=== PATIENT | male | born 1990 | race Caucasian/White ===

== ENCOUNTER 2019-05-24 12:06 | Inpatient (IN) | payer OTHER ==
[2019-05-24 17:23] VITALS: BMI 22.9
--- NOTE | 2019-05-24 17:51 | HP ---
COWS - Scale Resting Pulse: 0= [place] 80 or Below Sweatin= Chills/Flushing Restless Observation: 1= Difficult to Sit Still Pupil Size: 0= Normal to Room Light Bone or Joint Aches: 2= Severe Diffuse Aches Runny Nose/ Eye Tearin= Runny Nose/Eyes GI Upset > 30mins: 2= Nausea/Diarrhea Tremor Observation: 2= Slight Tremor Visible Yawning Observation: 1= 1-2x During Session Anxiety or Irritability: 2=Irritable/Anxious Goose Flesh Skin: 3=Piloerection COWS Score: 16 CIWA Score Nausea/Vomitin Muscle Tremors: 2 Anxiety: 2 Agitation: 2 Paroxysmal Sweats: 1-Minimal Palms Moist Orientation: 1-Uncertain about Date Tacttile Disturbances: 2-Mild Itch/Numbness/Burn Auditory Disturbances: 1-Very Mild Visual Disturbances: 1-Very Mild Sensitivity Headache: 1-Very Mild CIWA-Ar Total Score: 15 - Admission Criteria OASAS Guidelines: Admission for Medically Managed Detox: Requires at least one of the followin. CIWA greater than 12 2. Seizures within the past 24 hours 3. Delirium tremens within the past 24 hours 4. Hallucinations within the past 24 hours 5. Acute intervention needed for co occurring medical disorder 6. Acute intervention needed for co occurring psychiatric disorder 7. Severe withdrawal that cannot be handled at a lower level of care (continued vomiting, continued diarrhea, abnormal vital signs) requiring intravenous medication and/or fluids 8. Admission [facility] Chief Complaint: Withdrawal symptoms Allergies/Adverse Reactions: Allergies Allergy/AdvReac Type Severity Reaction Status Date / Time No Known Allergies Allergy Verified 05/24/19 17:02 History of Present Illness: 28 y.o. 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 He reports he last completed detox at [facility] "many years ago". Reports longest period of illicit drug abstinence has been 2 years while incarcerated. Exam Limitations: No Limitations - Ebola screening Have you traveled outside of the country in the last 21 days: No (N) Have you had contact with anyone from an Ebola affected area: No Do you have a fever: No - Review of Systems Constitutional: Chills, Diaphoresis, Loss of Appetite, Unexplained wgt Loss EENT: reports: Tearing, Nose Congestion Respiratory: reports: No Symptoms reported Cardiac: reports: No Symptoms Reported GI: reports: Diarrhea, Nausea, Vomiting, Abdominal cramping : reports: No Symptoms Reported Musculoskeletal: reports: Back Pain, Muscle Pain Integumentary: reports: No Symptoms Reported Neuro: reports: See HPI, Headache, Seizure (Last seizure 5 years d/t benzo withrdrawal) Endocrine: reports: No Symptoms Reported Hematology: reports: No Symptoms Reported Psychiatric: reports: Anxious, Depressed Other Systems: Reviewed and Negative Patient History - Patient Medical History Hx Anemia: No Hx Asthma: No Hx Chronic Obstructive Pulmonary Disease (COPD): No Hx Cancer: No Hx Cardiac Disorders: No Hx Congestive Heart Failure: No Hx Hypertension: No Hx Hypercholesterolemia: No Hx Pacemaker: No HX Cerebrovascular Accident: No Hx Seizures: Yes (5 years ago d/t benzo withdrawal ) Hx Dementia: No Hx Diabetes: No Hx Gastrointestinal Disorders: Yes (GERD ) Hx Liver Disease: No Hx Genitourinary Disorders: No Hx Sexually Transmitted Disorders: No Hx Renal Disease (ESRD): No Hx Thyroid Disease: No Hx Human Immunodeficiency Virus (HIV): No Hx Hepatitis C: No Hx Depression: Yes (NOT IN [place]) Hx Suicide Attempt: No (DENIES) Hx Bipolar Disorder: Yes Hx Schizophrenia: No - Patient Surgical History Past Surgical History: No Hx Neurologic Surgery: No Hx Cataract Extraction: No Hx Cardiac Surgery: No Hx Lung Surgery: No Hx Breast Surgery: No Hx Breast Biopsy: No Hx Abdominal Surgery: No Hx Appendectomy: No Hx Cholecystectomy: No Hx Genitourinary Surgery: No Hx Section: No Hx Orthopedic Surgery: No Anesthesia Reaction: No - PPD History Previous Implant?: Yes Documented Results: Negative w/proof Date: 07/26/14 PPD to be Administered?: Yes - Reproductive History Patient is a Female of Child Bearing Age (11 -55 yrs old): No - Smoking Cessation Smoking history: Current every day smoker Have you smoked in the past 12 months: Yes Aproximately how many cigarettes per day: 20 Hx Chewing Tobacco Use: No Initiated information on smoking cessation: Yes 'Breaking Loose' booklet given: 05/24/19 - Substance & Tx. History Hx Alcohol Use: No Hx Substance Use: Yes Substance Use Type: Heroin, Tranquilizers Hx Substance Use Treatment: Yes (Detox at [facility] in 2013) - Substances abused Heroin Substance route: Inhalation Frequency: Daily Amount used: 200 dolllars Age of first use: 26 Date of last use: 05/23/19 Alprazolam (Xanax) Substance route: Oral Frequency: Daily Amount used: 2 mg Age of first use: 22 Date of last use: 05/24/19 Admission Physical Exam [facility] - Vital Signs Vital Signs: Vital Signs - 24 hr 05/24/19 17:02 Temperature 98.6 F Pulse Rate 69 Respiratory 18 Rate Blood Pressure 135/79 - Physical General Appearance: Yes: Tremorous, Irritable, Sweating, Anxious HEENTM: Yes: Hearing grossly Normal, Normocephalic, Normal Voice, Nasal Congestion Respiratory: Yes: Lungs Clear, Normal Breath Sounds, No Respiratory Distress, No Accessory Muscle Use Neck: Yes: Within Normal Limits, No masses,lesions,Nodules Breast: Yes: Breast Exam Deferred Cardiology: Yes: Regular Rhythm, Regular Rate Abdominal: Yes: Increased Bowel Sounds Genitourinary: Yes: Other (No complaints reported) Back: Yes: Normal Inspection Musculoskeletal: Yes: Back pain Extremities: Yes: Normal Inspection, Normal Range of Motion, Non-Tender Neurological: Yes: Alert, Normal Mood/Affect, Normal Response Integumentary: Yes: Normal Color, Dry, Warm, Track Vang Lymphatic: Yes: Within Normal Limits - Diagnostic (1) Uncomplicated opioid dependence Current Visit: Yes Status: Chronic (2) Benzodiazepine dependence Current Visit: Yes Status: Chronic (3) GERD (gastroesophageal reflux disease) Current Visit: Yes Status: Chronic (4) Nicotine dependence Current Visit: Yes Status: Chronic (5) Seizures Current Visit: Yes Status: Chronic Cleared for Admission [facility] - Detox or Rehab [facility] Level of Care: Medically Managed Detox Regimen/Protocol: Methadone/Valium Breathalyzer - Breathalyzer Breathalyzer: 0 Urine Drug Screen - Test Device Lot number: [id number] Expiration date: 01/28/21 - Control Is test valid?: Yes - Results Drug screen NEGATIVE: No Urine drug screen results: THC-Marijuana, FEN-Fentanyl, MOP-Opiates, BZO- Benzodiazepines Inpatient Rehab Admission - Rehab Decision to Admit Inpatient rehab admission?: No
[2019-05-24] MEDS ORDERED: hydrOXYzine PAMOATE 25 MG CAPSULE (FP) PO PRN (17:53)
[2019-05-24] MEDS ORDERED: diazePAM 5 MG TABLET PO PRN (17:53)
[2019-05-24] MEDS ORDERED: BISMUTH SUBSALICYLATE 524 MG/30 ML UD PO PRN (17:53)
[2019-05-24] MEDS ORDERED: ACETAMINOPHEN 325 MG TABLET (FP) PO PRN ×2 (17:53)
[2019-05-24] MEDS ORDERED: MAGNESIUM HYDROX 2400MG/30ML ORAL SUSPENSION 30 ML CUP PO PRN (17:53)
[2019-05-24] MEDS ORDERED: MELATONIN 5 MG TABLETS PO PRN (17:53)
[2019-05-24] MEDS ORDERED: METHOCARBAMOL 500 MG TABLET PO PRN (17:53)
[2019-05-24] MEDS ORDERED: cloNIDine HCL 0.1 MG TABLET PO PRN (17:53)
[2019-05-24] MEDS ORDERED: IBUPROFEN 400 MG TABLET (FP) PO PRN (17:53)
[2019-05-24] MEDS ORDERED: MAGNESIUM CITRATE 300 ML BOTTLE PO PRN (17:53)
[2019-05-24] MEDS ORDERED: MENTHOL/PHENOL 1 EACH UD MM PRN (17:53)
[2019-05-24] MEDS ORDERED: MAG HYDROX/AL HYDROX/SIMETH 30 ML UNIT-DOSE CUP PO PRN (17:53)
[2019-05-24] MEDS ORDERED: NICOTINE POLACRILEX 2 MG GUM BUC PRN (17:53)
[2019-05-24] MEDS ORDERED: RANITIDINE HCL 150 MG TABLET (FP) PO ONE (18:15)
[2019-05-24] MEDS ORDERED: diazePAM 5 MG TABLET PO ONE (18:15)
[2019-05-24] MEDS ORDERED: METHADONE HCL 10 MG TABLET (FOR DETOX USE ONLY) PO ONE (18:15)
[2019-05-24] MEDS: RANITIDINE HCL 150 MG TABLET (FP) PO SCH ×2 (18:49→21:19)
[2019-05-24] MEDS: diazePAM 5 MG TABLET PO SCH (21:18)
[2019-05-24] MEDS: ONDANSETRON 4 MG TABLET PO SCH (21:19)
[2019-05-24] MEDS: HYOSCYAMINE SULFATE 0.125 MG *ODT SL SCH (21:19)
[2019-05-24] MEDS: SUCRALFATE 1 GM TABLET (FP) PO SCH (21:20)
[2019-05-24] MEDS ORDERED: THIAMINE HCL 100 MG TABLET (FP) PO SCH ×2 (22:00)
[2019-05-25] MEDS: diazePAM 5 MG TABLET PO SCH (05:31)
[2019-05-25] MEDS: SUCRALFATE 1 GM TABLET (FP) PO SCH (05:32)
[2019-05-25] MEDS: HYOSCYAMINE SULFATE 0.125 MG *ODT SL SCH (05:32)
[2019-05-25] MEDS: ONDANSETRON 4 MG TABLET PO SCH (05:32)
[2019-05-25] MEDS ORDERED: METHADONE HCL 10 MG TABLET (FOR DETOX USE ONLY) ONE (09:37)
[2019-05-25] MEDS ORDERED: METHADONE HCL 5 MG TABLET (FOR DETOX USE ONLY) ONE (09:38)
[2019-05-25 09:52] VITALS: TEMP 97.9
--- NOTE | 2019-05-25 09:55 | CONSULT ---
[facility] Psychiatric Consult - Data Date of interview: 05/25/19 Psychiatric History: Patient approached at bedside. Told pattern chart writer:"I don't want to see psychiatrist"
[2019-05-25] MEDS ORDERED: METHADONE (DETOX) 20 MG, METHADONE (DETOX) 5 MG PO ONE (10:00)
[2019-05-25] MEDS ORDERED: NICOTINE 21 MG/24 HOURS TOPICAL PATCH TD SCH (10:00)
[2019-05-25] MEDS ORDERED: PRENATAL VITAMINS W/ FOLIC ACID TABLET (FP) PO SCH (10:00)
[2019-05-25] MEDS: RANITIDINE HCL 150 MG TABLET (FP) PO SCH (10:07)
[2019-05-25 11:20] LABS: HEMATOCRIT 42.6 % (35.4-49); HEMOGLOBIN 14.5 GM/dL (11.7-16.9); MCH 31.3 pg (25.7-33.7); MCHC 33.9 g/dl (32.0-35.9); MEAN CELL VOLUME 92.3 fl (80-96); MEAN PLT VOLUME 8.2 fl (7.5-11.1); PLATELET COUNT 281 K/MM3 (134-434); RBC 4.62 M/mm3 (4.00-5.60); RDW 12.9 % (11.9-15.9); WHITE BLOOD COUNT 13.9 K/mm3 (4.0-10.0)
[2019-05-25 11:27] LABS: ALBUMIN 3.9 g/dl (3.4-5.0); BILIRUBIN,TOTAL 1.3 mg/dL (0.2-1); BLOOD UREA NITROGEN 14.3 mg/dL (7-18); CALCIUM 9.6 mg/dL (8.5-10.1); CREATININE 1.1 mg/dL (0.55-1.3); POTASSIUM 4.3 mmol/L (3.5-5.1); TOT PROT 7.6 g/dl (6.4-8.2)
--- NOTE | 2019-05-25 11:44 | PN ---
[facility] CIWA - CIWA Score Nausea/Vomitin-No Nausea/No Vomiting Muscle Tremors: 3 Anxiety: 3 Agitation: 3 Paroxysmal Sweats: 3 Orientation: 0-Oriented Tacttile Disturbances: 0-None Auditory Disturbances: 0-None Visual Disturbances: 0-None Headache: 0-None Present CIWA-Ar Total Score: 12 S COWS - Scale Resting Pulse: 0= [place] 80 or Below Sweatin= Chills/Flushing Restless Observation: 1= Difficult to Sit Still Pupil Size: 0= Normal to Room Light Bone or Joint Aches: 1= Mild Discomfort Runny Nose/ Eye Tearin= None GI Upset > 30mins: 1= Stomach Cramp Tremor Observation of Outstretched Hands: 1= Tremor [place], Not Seen Yawning Observation: 1= 1-2x During Session Anxiety or Irritability: 2=Irritable/Anxious Goose Flesh Skin: 0=Smooth Skin COWS Score: 8 [facility] Progress Note (SOAP) Subjective: nausea sweats shakes body aches irritable back pain Objective: 05/25/19 11:30 Vital Signs Temperature 97.9 F 05/25/19 09:52 Pulse Rate 65 05/25/19 09:52 Respiratory Rate 18 05/25/19 09:52 Blood Pressure 115/59 L 05/25/19 09:52 O2 Sat by Pulse Oximetry (%) Laboratory Tests 05/25/19 07:45 Sodium 135 L Potassium 4.3 Chloride 101 Carbon Dioxide 26 Anion Gap 7 L BUN 14.3 Creatinine 1.1 Est GFR (CKD-EPI)AfAm 103.85 Est GFR (CKD-EPI)NonAf 89.61 Random Glucose 84 Calcium 9.6 Total Bilirubin 1.3 H AST 75 H ALT 195 H Alkaline Phosphatase 97 Total Protein 7.6 Albumin 3.9 labs noted ambulating no acute distress Assessment: 05/25/19 13:09 withdrawals Plan: continue detox
[2019-05-25 12:49] VITALS: BP 129/68; PULSE 70
--- NOTE | 2019-05-25 14:54 | PN ---
S Progress Note Note: pt was admitted in withdrawals. pt c/o of withdrawals symptoms and aggressive symptomatic management attempted however, pt in spite of extensive motivational counseling regarding the risk of relapse, seizures, DT's and or loss pt chose to sign out AMA.
--- NOTE | 2019-05-25 14:57 | DS ---
[facility] Detox Discharge Summary Admission Date: 05/24/19 - History Present History: Cannabis Dependence, Opioid Dependence, Sedative Dependence - Physical Exam Results Vital Signs: Vital Signs Temperature 97.9 F 05/25/19 12:49 Pulse Rate 70 05/25/19 12:49 Respiratory Rate 18 05/25/19 12:49 Blood Pressure 129/68 05/25/19 12:49 O2 Sat by Pulse Oximetry (%) Pertinent Admission Physical Exam Findings: pt arrived yesterday in withdrawals Laboratory Tests 05/25/19 05/25/19 07:45 07:45 WBC 13.9 H RBC 4.62 Hgb 14.5 Hct 42.6 MCV 92.3 MCH 31.3 MCHC 33.9 RDW 12.9 Plt Count 281 MPV 8.2 Sodium 135 L Potassium 4.3 Chloride 101 Carbon Dioxide 26 Anion Gap 7 L BUN 14.3 Creatinine 1.1 Est GFR (CKD-EPI)AfAm 103.85 Est GFR (CKD-EPI)NonAf 89.61 Random Glucose 84 Calcium 9.6 Total Bilirubin 1.3 H AST 75 H ALT 195 H Alkaline Phosphatase 97 Total Protein 7.6 Albumin 3.9 pt did not want to stay to continue his detox; pt states he is not ready for detox and prefers to go to a methadone program at [facility]. - Treatment Hospital Course: Discharged Condition Good Patient has Accepted a Rehab Referral to: referral provided - Medication Discharge Medications: Ambulatory Orders Thiamine HCl [Vitamin B1 -] 100 mg PO HS #30 tablet 07/28/14 Omeprazole 20 mg PO DAILY 05/24/19 - Diagnosis (1) Benzodiazepine dependence Current Visit: Yes Status: Chronic (2) GERD (gastroesophageal reflux disease) Current Visit: Yes Status: Chronic Qualifiers: Esophagitis presence: without esophagitis Qualified Code(s): K21.9 - Gastro -esophageal reflux disease without esophagitis (3) Nicotine dependence Current Visit: Yes Status: Chronic Qualifiers: Nicotine product type: cigarettes Substance use status: uncomplicated Qualified Code(s): F17.210 - Nicotine dependence, cigarettes, uncomplicated (4) Seizures Current Visit: Yes Status: Chronic Qualifiers: Convulsion type: unspecified Qualified Code(s): R56.9 - Unspecified convulsions (5) Uncomplicated opioid dependence Current Visit: Yes Status: Chronic (6) Cannabis dependence Current Visit: Yes Status: Chronic (7) Drug-induced mood disorder Current Visit: No Status: Suspected - AMA Did Patient Leave Against Medical Advice: Yes
[2019-05-26] MEDS ORDERED: diazePAM 5 MG TABLET PO SCH (06:00)
[2019-05-26] MEDS ORDERED: METHADONE HCL 10 MG TABLET (FOR DETOX USE ONLY) PO ONE (10:00)
[2019-05-27] MEDS ORDERED: diazePAM 5 MG TABLET PO ONE (06:00)
[2019-05-27] MEDS ORDERED: METHADONE (DETOX) 10 MG, METHADONE (DETOX) 5 MG PO ONE (10:00)
[2019-05-28] MEDS ORDERED: METHADONE HCL 10 MG TABLET (FOR DETOX USE ONLY) PO ONE (10:00)
[2019-05-29] MEDS ORDERED: METHADONE HCL 5 MG TABLET (FOR DETOX USE ONLY) PO ONE (06:00)
== END 2019-05-25 13:29 | disposition left against medical advice (07) | DRG 770 ==
LOC: YASAS 12:06 → Y6N 17:59
PROVIDERS: ADMIT Surgery; ATTEND Surgery
PROC: HZ2ZZZZ Detoxification Services for Substance Abuse Treatment (ICD-10-PCS; principal; 2019-05-24)
DX: F11.23 Opioid dependence with withdrawal (principal); F13.230 Sedative, hypnotic or anxiolytic dependence with withdrawal, uncomplicated; F12.20 Cannabis dependence, uncomplicated; F17.210 Nicotine dependence, cigarettes, uncomplicated; F19.24 Other psychoactive substance dependence with psychoactive substance-induced mood disorder; K21.9 Gastro-esophageal reflux disease without esophagitis; Z86.69 Personal history of other diseases of the nervous system and sense organs; Z59.0 Homelessness
CPT/HCPCS: 36415; 80053; 85027; 86593; 86803; 87389

== ENCOUNTER 2020-05-04 11:34 | Inpatient (IN) | payer OTHER ==
--- NOTE | 2020-05-04 12:33 | BHS.RME ---
Substance Use & Tx History - Substance Use History Heroin Substance amount: 2 bundles Frequency of use: Daily Substance route: Inhalation (ex: sniffing or snorting), Injection (ex: intravenous or skin popping) Date of Last Use: 05/04/20 Xanax Substance amount: 2mg - 6 tabs Frequency of use: Daily Substance route: Oral Date of Last Use: 05/03/20 Physical/Psych/Mental Status - Behavior General Behavior: Increased activity (restlessness, agitation) Eye Contact: Normal - Cooperativeness Cooperativeness: Cooperative - Thinking Thought Processes: Tight, Logical, Goal Directed - Physical Health Problems Is patient presently having any pain?: No Does patient presently have any injuries (include location): No Does patient currently have a fever: No Is patient : No COWS - Scale Resting Pulse: 0= [place] 80 or Below Sweatin= Chills/Flushing Restless Observation: 1= Difficult to Sit Still Pupil Size: 1= Pupils >than Normal Bone or Joint Aches: 4=Acute Joint/Muscle Pain Runny Nose/ Eye Tearin= Runny Nose/Eyes GI Upset > 30mins: 1= Stomach Cramp Tremor Observation: 2= Slight Tremor Visible Yawning Observation: 1= 1-2x During Session Anxiety or Irritability: 0= None Goose Flesh Skin: 3=Piloerection COWS Score: 16
--- NOTE | 2020-05-04 13:34 | HP ---
COWS - Scale Resting Pulse: 0= [place] 80 or Below Sweatin= Chills/Flushing Restless Observation: 1= Difficult to Sit Still Pupil Size: 1= Pupils >than Normal Bone or Joint Aches: 4=Acute Joint/Muscle Pain Runny Nose/ Eye Tearin= Runny Nose/Eyes GI Upset > 30mins: 1= Stomach Cramp Tremor Observation: 2= Slight Tremor Visible Yawning Observation: 1= 1-2x During Session Anxiety or Irritability: 0= None Goose Flesh Skin: 3=Piloerection COWS Score: 16 CIWA Score Nausea/Vomitin-Mild Nausea/No Vomiting Muscle Tremors: 3 Anxiety: 1-Mildly Anxious Agitation: 1-Slight > Activity Paroxysmal Sweats: 5 Orientation: 1-Uncertain about Date Tacttile Disturbances: 0-None Auditory Disturbances: 0-None Visual Disturbances: 0-None Headache: 0-None Present CIWA-Ar Total Score: 12 - Admission Criteria OASAS Guidelines: Admission for Medically Managed Detox: Requires at least one of the followin. CIWA greater than 12 2. Seizures within the past 24 hours 3. Delirium tremens within the past 24 hours 4. Hallucinations within the past 24 hours 5. Acute intervention needed for co occurring medical disorder 6. Acute intervention needed for co occurring psychiatric disorder 7. Severe withdrawal that cannot be handled at a lower level of care (continued vomiting, continued diarrhea, abnormal vital signs) requiring intravenous medication and/or fluids 8. Admitting History and Physical - Admission History of Present Illness: Patient is a 29 y.o. M presenting to [facility] for detox. Patient is in no acute distress. Patient drug use consists of heroin 2 bundles a day IV/IN, no overdoses first use at 25. Xanax 6 2mg tabs a day since 22 y.o. - Substance Use History Heroin Substance amount: 2 bundles Frequency of use: Daily Substance route: Inhalation (ex: sniffing or snorting), Injection (ex: intravenous or skin popping) Date of Last Use: 05/04/20 Xanax Substance amount: 2mg - 6 tabs Frequency of use: Daily Substance route: Oral Date of Last Use: 05/03/20 Limitations to Obtaining History: No Limitations - Past Medical History ORTHOTIC ASSISTANT: No: Seizure Cardiovascular: No: HTN Gastrointestinal: Yes: Gastritis. No: GI Bleed Hepatobiliary: No: Hepatitis A, Hepatitis B, Hepatitis C Infectious Disease: No: HIV, STD's Psych: Yes: Anxiety - Past Surgical History Past Surgical History: Yes: None - Smoking History Smoking history: Current every day smoker Have you smoked in the past 12 months: Yes Aproximately how many cigarettes per day: 20 - Alcohol/Substance Use Hx Alcohol Use: No History of Substance Use: reports: Heroin - Social History Usual Living Arrangement: Yes: With Parent ADL: Independent Occupation: unemployed History of Recent Travel: No Admission [facility] Allergies/Adverse Reactions: Allergies Allergy/AdvReac Type Severity Reaction Status Date / Time No Known Allergies Allergy Verified 05/04/20 14:26 History of Present Illness: Patient is a 29 y.o. M presenting to [facility] for detox. Patient is in no acute distress. Patient drug use consists of heroin 2 bundles a day IV/IN, no overdoses first use at 25. Xanax 6 2mg tabs a day since 22 y.o. - Substance Use History Heroin Substance amount: 2 bundles Frequency of use: Daily Substance route: Inhalation (ex: sniffing or snorting), Injection (ex: intravenous or skin popping) Date of Last Use: 05/04/20 Xanax Substance amount: 2mg - 6 tabs Frequency of use: Daily Substance route: Oral Date of Last Use: 05/03/20 - Ebola screening Have you traveled outside of the country in the last 21 days: No Have you had contact with anyone from an Ebola affected area: No Have you been sick,other than usual withdrawal symptoms: No Do you have a fever: No - Review of Systems Constitutional: No Symptoms Reported EENT: reports: No Symptoms Reported. denies: Blurred Vision, Double Vision Respiratory: denies: Cough, Shortness of Breath Cardiac: denies: Chest Pain, Lightheadedness GI: reports: Abdominal Distended. denies: Constipated, Diarrhea, Nausea, Vomiting Musculoskeletal: reports: Muscle Pain. denies: Muscle Weakness Neuro: denies: Headache, Numbness, Dizziness Endocrine: reports: Excessive Sweating Psychiatric: reports: No Sypmtoms Reported, Judgement Intact, Mood/Affect Appropiate, Orientated x3 Patient History - Patient Medical History Hx Anemia: No Hx Asthma: No Hx Chronic Obstructive Pulmonary Disease (COPD): No Hx Cancer: No Hx Cardiac Disorders: No Hx Congestive Heart Failure: No Hx Hypertension: No Hx Hypercholesterolemia: No Hx Pacemaker: No HX Cerebrovascular Accident: No Hx Seizures: Yes (5 years ago d/t benzo withdrawal ) Hx Dementia: No Hx Diabetes: No Hx Gastrointestinal Disorders: Yes (GERD ) Hx Liver Disease: No Hx Genitourinary Disorders: No Hx Sexually Transmitted Disorders: No Hx Renal Disease (ESRD): No Hx Thyroid Disease: No Hx Human Immunodeficiency Virus (HIV): No Hx Hepatitis C: No Hx Depression: Yes (NOT IN [place]) Hx Suicide Attempt: No (DENIES) Hx Bipolar Disorder: Yes Hx Schizophrenia: No - Patient Surgical History Past Surgical History: No Hx Neurologic Surgery: No Hx Cataract Extraction: No Hx Cardiac Surgery: No Hx Lung Surgery: No Hx Breast Surgery: No Hx Breast Biopsy: No Hx Abdominal Surgery: No Hx Appendectomy: No Hx Cholecystectomy: No Hx Genitourinary Surgery: No Hx Section: No Hx Orthopedic Surgery: No Anesthesia Reaction: No - PPD History Date: 05/26/19 Results: not read - Smoking Cessation Smoking history: Current every day smoker Have you smoked in the past 12 months: Yes Aproximately how many cigarettes per day: 20 Hx Chewing Tobacco Use: No Initiated information on smoking cessation: Yes 'Breaking Loose' booklet given: 05/04/20 - Substances abused Heroin Substance route: Injection Frequency: Daily Amount used: 2 bundles Age of first use: 25 Date of last use: 05/04/20 Alprazolam (Xanax) Substance route: Oral Frequency: Daily Amount used: 2mg- 6tabs Age of first use: 22 Date of last use: 05/03/20 Admission Physical Exam S - Physical General Appearance: Yes: Within Normal Limits, Nourished, Appropriately Dressed Respiratory: Yes: Lungs Clear, Decreased Breath Sounds, No Respiratory Distress, No Accessory Muscle Use Cardiology: Yes: Within Normal Limits, Regular Rhythm, Regular Rate Abdominal: Yes: Within Normal Limits, Normal Bowel Sounds, Non Tender, Soft, Distended Back: No: CVA Tenderness Musculoskeletal: Yes: Muscle Pain Extremities: Yes: Within Normal Limits, Normal Inspection, Non-Tender Neurological: Yes: Within Normal Limits, Fully Oriented, Alert, Normal Mood/Affect, Normal Response - Diagnostic (1) Benzodiazepine dependence Current Visit: No Status: Chronic (2) GERD (gastroesophageal reflux disease) Current Visit: No Status: Chronic Qualifiers: Esophagitis presence: without esophagitis Qualified Code(s): K21.9 - Gastro-esophageal reflux disease without esophagitis (3) Nicotine dependence Current Visit: No Status: Chronic Qualifiers: Nicotine product type: cigarettes Substance use status: uncomplicated Qualified Code(s): F17.210 - Nicotine dependence, cigarettes, uncomplicated (4) Uncomplicated opioid dependence Current Visit: No Status: Chronic (5) Drug-induced mood disorder Current Visit: No Status: Suspected Cleared for Admission [facility] - Detox or Rehab [facility] Level of Care: Medically Managed Detox Regimen/Protocol: Ativan, Methadone Breathalyzer - Breathalyzer Breathalyzer: 0 Vital Signs - Vital Signs Vital signs refused: No Temperature: 97.9 F Pulse Rate: 73 Respiratory Rate: 18 Blood Pressure: 114/70 - Height Height: 1.75 m - Weight Weight: 69.4 kg - BMI Body Mass Index (BMI): 22.6 Urine Drug Screen - Test Device Lot number: [id number] Expiration date: 04/03/22 - Control Is test valid?: Yes - Results Drug screen NEGATIVE: No Urine drug screen results: THC-Marijuana, JACKIE-Cocaine, FEN-Fentanyl, MOP- Opiates, BZO-Benzodiazepines Inpatient Rehab Admission - Rehab Decision to Admit Inpatient rehab admission?: No
[2020-05-04 13:41] VITALS: BMI 22.6
[2020-05-04] MEDS ORDERED: IBUPROFEN 400 MG TABLET (FP) PO PRN (13:41)
[2020-05-04] MEDS ORDERED: MAGNESIUM CITRATE 300 ML BOTTLE PO PRN (13:41)
[2020-05-04] MEDS ORDERED: MENTHOL/PHENOL 1 EACH UD MM PRN (13:41)
[2020-05-04] MEDS ORDERED: METHOCARBAMOL 500 MG TABLET PO PRN (13:41)
[2020-05-04] MEDS ORDERED: BISMUTH SUBSALICYLATE 524 MG/30 ML UD PO PRN (13:41)
[2020-05-04] MEDS ORDERED: ACETAMINOPHEN 325 MG TABLET (FP) PO PRN ×2 (13:41)
[2020-05-04] MEDS ORDERED: LORazepam 1 MG TABLET PO PRN (13:41)
[2020-05-04] MEDS ORDERED: MAG HYDROX/AL HYDROX/SIMETH 30 ML UNIT-DOSE CUP PO PRN (13:41)
[2020-05-04] MEDS ORDERED: MAGNESIUM HYDROX 2400MG/30ML ORAL SUSPENSION 30 ML CUP PO PRN (13:41)
[2020-05-04] MEDS ORDERED: NICOTINE POLACRILEX 2 MG GUM BUC PRN (13:41)
[2020-05-04] MEDS ORDERED: METHADONE HCL 10 MG TABLET (FOR DETOX USE ONLY) PO ONE ×2 (13:41→15:30)
[2020-05-04] MEDS ORDERED: cloNIDine HCL 0.1 MG TABLET PO PRN ×2 (13:41→14:42)
[2020-05-04] MEDS ORDERED: ONDANSETRON *ODT* 4 MG TABLET SL ONE (13:41)
[2020-05-04 15:51] LABS: HEMATOCRIT 44.1 % (35.4-49); HEMOGLOBIN 14.4 GM/dL (11.7-16.9); MCH 30.8 pg (25.7-33.7); MCHC 32.6 g/dl (32.0-35.9); MEAN CELL VOLUME 94.4 fl (80-96); MEAN PLT VOLUME 8.2 fl (7.5-11.1); PLATELET COUNT 302 K/MM3 (134-434); RBC 4.67 M/mm3 (4.00-5.60); RDW 13.8 % (11.9-15.9); WHITE BLOOD COUNT 15.3 K/mm3 (4.0-10.0)
[2020-05-04 16:04] LABS: ALBUMIN 4.1 g/dl (3.4-5.0); BILIRUBIN,TOTAL 1.1 mg/dL (0.2-1); BLOOD UREA NITROGEN 11.2 mg/dL (7-18); CALCIUM 9.5 mg/dL (8.5-10.1); CREATININE 1.1 mg/dL (0.55-1.3); POTASSIUM 4.6 mmol/L (3.5-5.1)
[2020-05-04] MEDS: LORazepam 2 MG TABLET PO SCH ×2 (18:08→23:24)
[2020-05-04] MEDS: hydrOXYzine PAMOATE 25 MG CAPSULE (FP) PO SCH ×2 (18:45→23:23)
[2020-05-04] MEDS ORDERED: MELATONIN 5 MG TABLETS PO SCH (22:00)
[2020-05-04] MEDS ORDERED: THIAMINE HCL 100 MG TABLET (FP) PO SCH (22:00)
[2020-05-05] MEDS: LORazepam 2 MG TABLET PO SCH ×2 (06:55→10:10)
[2020-05-05] MEDS: hydrOXYzine PAMOATE 25 MG CAPSULE (FP) PO SCH ×3 (06:55→14:57)
--- NOTE | 2020-05-05 08:42 | PN ---
Teaching Attending Note Name of Resident: Jenaro Graves ATTENDING PHYSICIAN STATEMENT I saw and evaluated the patient. I reviewed the resident's note and discussed the case with the resident. I agree with the resident's findings and plan as documented. SUBJECTIVE: OBJECTIVE: ASSESSMENT AND PLAN: Agree with resident's findings and plan for detox.
[2020-05-05] MEDS ORDERED: PRENATAL VITAMINS W/ FOLIC ACID TABLET (FP) PO SCH (10:00)
[2020-05-05] MEDS ORDERED: METHADONE HCL 5 MG TABLET (FOR DETOX USE ONLY) PO ONE ×2 (10:00)
[2020-05-05] MEDS ORDERED: NICOTINE 7 MG/24 HOURS TOPICAL PATCH TD SCH (10:00)
--- NOTE | 2020-05-05 10:50 | PN ---
[facility] CIWA - CIWA Score Nausea/Vomitin-No Nausea/No Vomiting Muscle Tremors: 2 Anxiety: 3 Agitation: 1-Slight > Activity Paroxysmal Sweats: 3 Orientation: 0-Oriented Tacttile Disturbances: 0-None Auditory Disturbances: 0-None Visual Disturbances: 0-None Headache: 1-Very Mild CIWA-Ar Total Score: 10 BHS COWS - Scale Resting Pulse: 1= [place] 81-100 Sweatin= Chills/Flushing Restless Observation: 1= Difficult to Sit Still Pupil Size: 0= Normal to Room Light Bone or Joint Aches: 2= Severe Diffuse Aches Runny Nose/ Eye Tearin= None GI Upset > 30mins: 0= None Tremor Observation of Outstretched Hands: 2= Slight Tremor Visible Yawning Observation: 1= 1-2x During Session Anxiety or Irritability: 2=Irritable/Anxious Goose Flesh Skin: 0=Smooth Skin COWS Score: 10 S Progress Note (SOAP) Subjective: c/o anxiety, irritability, sweats, headache, and muscle aches. Objective: 05/05/20 10:49 Vital Signs 05/05/20 09:35 Temperature 98.1 F Pulse Rate 91 H Respiratory 18 Rate Blood Pressure 107/68 Laboratory Last Values WBC 15.3 K/mm3 (4.0-10.0) H 05/04/20 13:30 RBC 4.67 M/mm3 (4.00-5.60) 05/04/20 13:30 Hgb 14.4 GM/dL (11.7-16.9) 05/04/20 13:30 Hct 44.1 % (35.4-49) 05/04/20 13:30 MCV 94.4 fl (80-96) 05/04/20 13:30 MCH 30.8 pg (25.7-33.7) 05/04/20 13:30 MCHC 32.6 g/dl (32.0-35.9) 05/04/20 13:30 RDW 13.8 % (11.9-15.9) 05/04/20 13:30 Plt Count 302 K/MM3 (134-434) 05/04/20 13:30 MPV 8.2 fl (7.5-11.1) 05/04/20 13:30 Sodium 137 mmol/L (136-145) 05/04/20 13:30 Potassium 4.6 mmol/L (3.5-5.1) 05/04/20 13:30 Chloride 105 mmol/L (98-107) 05/04/20 13:30 Carbon Dioxide 28 mmol/L (21-32) 05/04/20 13:30 Anion Gap 4 MMOL/L (8-16) L 05/04/20 13:30 BUN 11.2 mg/dL (7-18) 05/04/20 13:30 Creatinine 1.1 mg/dL (0.55-1.3) 05/04/20 13:30 Est GFR (CKD-EPI)AfAm 103.13 05/04/20 13:30 Est GFR (CKD-EPI)NonAf 88.98 05/04/20 13:30 Random Glucose 104 mg/dL (74-106) 05/04/20 13:30 Calcium 9.5 mg/dL (8.5-10.1) 05/04/20 13:30 Total Bilirubin 1.1 mg/dL (0.2-1) H 05/04/20 13:30 AST 21 U/L (15-37) 05/04/20 13:30 ALT 24 U/L (13-61) 05/04/20 13:30 Alkaline Phosphatase 91 U/L (45-117) 05/04/20 13:30 Total Protein 8.0 g/dl (6.4-8.2) 05/04/20 13:30 Albumin 4.1 g/dl (3.4-5.0) 05/04/20 13:30 Syphilis Serology Non-reactive (NONREACTIVE) 05/04/20 13:30 Labs noted. Assessment: 05/05/20 10:50 AOX3, in no acute respiratory distress. Full ROM, ambulating in the unit. Withdrawal symptoms. Plan: continue detox.
--- NOTE | 2020-05-05 15:00 | EKG ---
Test Reason : Blood Pressure : / mmHG Vent. Rate : 063 BPM Atrial Rate : 063 BPM P-R Int : 180 ms QRS Dur : 082 ms QT Int : 372 ms P-R-T Axes : 048 088 064 degrees QTc Int : 380 ms NORMAL SINUS RHYTHM NORMAL ECG NO PREVIOUS ECGS AVAILABLE Confirmed by Felipe Tejada ([id number]) on 05/05/2020 3:00:24 PM Referred By: Confirmed By:Felipe Tejada
[2020-05-05 17:26] VITALS: BP 134/72; PULSE 70; TEMP 97.8
--- NOTE | 2020-05-05 22:35 | DS ---
[facility] Detox Discharge Summary Admission Date: 05/04/20 Discharge Date: 05/05/20 - History Present History: Opioid Dependence, Sedative Dependence Pertinent Past History: CLIENT SIGNED OUT AMA, LEFT BEFORE BEING SEEN BY PROVIDER - Physical Exam Results Vital Signs: Vital Signs Temperature 97.8 F 05/05/20 16:49 Pulse Rate 70 05/05/20 16:49 Respiratory Rate 18 05/05/20 16:49 Blood Pressure 134/72 05/05/20 16:49 O2 Sat by Pulse Oximetry (%) 98 05/04/20 20:42 Pertinent Admission Physical Exam Findings: C/O WITHDRAWAL SX'S Laboratory Tests 05/04/20 05/04/20 05/04/20 13:30 13:30 13:30 WBC 15.3 H RBC 4.67 Hgb 14.4 Hct 44.1 MCV 94.4 MCH 30.8 MCHC 32.6 RDW 13.8 Plt Count 302 MPV 8.2 Sodium 137 Potassium 4.6 Chloride 105 Carbon Dioxide 28 Anion Gap 4 L BUN 11.2 Creatinine 1.1 Est GFR (CKD-EPI)AfAm 103.13 Est GFR (CKD-EPI)NonAf 88.98 Random Glucose 104 Calcium 9.5 Total Bilirubin 1.1 H AST 21 ALT 24 Alkaline Phosphatase 91 Total Protein 8.0 Albumin 4.1 Syphilis Serology Non-reactive COVID-19 (EDD) HIV Ag/Ab Combo Qual 05/04/20 05/05/20 14:50 06:00 WBC RBC Hgb Hct MCV MCH MCHC RDW Plt Count MPV Sodium Potassium Chloride Carbon Dioxide Anion Gap BUN Creatinine Est GFR (CKD-EPI)AfAm Est GFR (CKD-EPI)NonAf Random Glucose Calcium Total Bilirubin AST ALT Alkaline Phosphatase Total Protein Albumin Syphilis Serology COVID-19 (EDD) Not detected HIV Ag/Ab Combo Qual Negative - Treatment Hospital Course: Discharged Condition Good ( PER RN REPORT) - Medication Discharge Medications: Ambulatory Orders NK [No Known Home Medication] 05/04/20 - Diagnosis (1) Benzodiazepine dependence Status: Chronic (2) GERD (gastroesophageal reflux disease) Status: Chronic Qualifiers: Esophagitis presence: without esophagitis Qualified Code(s): K21.9 - Gastro-esophageal reflux disease without esophagitis (3) Nicotine dependence Status: Chronic Qualifiers: Nicotine product type: cigarettes Substance use status: uncomplicated Qualified Code(s): F17.210 - Nicotine dependence, cigarettes, uncomplicated (4) Uncomplicated opioid dependence Status: Chronic (5) Drug-induced mood disorder Status: Suspected - AMA Did Patient Leave Against Medical Advice: Yes
[2020-05-06] MEDS ORDERED: LORazepam 1 MG TABLET PO SCH (05:00)
[2020-05-06] MEDS ORDERED: METHADONE HCL 10 MG TABLET (FOR DETOX USE ONLY) PO ONE ×2 (10:00)
[2020-05-07] MEDS ORDERED: LORazepam 0.5 MG TABLET PO PRN
[2020-05-07] MEDS ORDERED: LORazepam 0.5 MG TABLET PO SCH (05:00)
[2020-05-07] MEDS ORDERED: METHADONE HCL 5 MG TABLET (FOR DETOX USE ONLY) PO ONE ×2 (06:00)
[2020-05-08] MEDS ORDERED: LORazepam 0.5 MG TABLET PO ONE (05:00)
== END 2020-05-05 17:45 | disposition left against medical advice (07) | DRG 770 ==
LOC: YASAS 11:34 → Y3N 14:49
PROVIDERS: ADMIT Allergy & Immunology; ATTEND Allergy & Immunology
PROC: HZ2ZZZZ Detoxification Services for Substance Abuse Treatment (ICD-10-PCS; principal; 2020-05-04)
DX: F11.23 Opioid dependence with withdrawal (principal); F13.230 Sedative, hypnotic or anxiolytic dependence with withdrawal, uncomplicated; F17.210 Nicotine dependence, cigarettes, uncomplicated; F19.24 Other psychoactive substance dependence with psychoactive substance-induced mood disorder; F31.9 Bipolar disorder, unspecified; F41.9 Anxiety disorder, unspecified; K21.9 Gastro-esophageal reflux disease without esophagitis
CPT/HCPCS: 36415; 80053; 85027; 86780; 87389; 93005; 93010; Q0162; U0003

== ENCOUNTER 2022-09-27 01:51 | Inpatient (IN) | payer OTHER ==
[2022-09-27 02:16] VITALS: RESP 18; BMI 17.7
[2022-09-27] MEDS ORDERED: ONDANSETRON *ODT* 4 MG TABLET SL PRN (02:54)
[2022-09-27] MEDS ORDERED: IBUPROFEN 400 MG TABLET (FP) PO PRN (02:54)
[2022-09-27] MEDS ORDERED: NALOXONE HCL (KLOXXADO) 8 MG SPRAY NS PRN (02:54)
[2022-09-27] MEDS ORDERED: BISMUTH SUBSALICYLATE 524 MG/30 ML PO PRN (02:54)
[2022-09-27] MEDS ORDERED: LOPERAMIDE HCL 2 MG CAPSULE PO PRN (02:54)
[2022-09-27] MEDS ORDERED: DICYCLOMINE HCL 10 MG CAPSULE PO PRN (02:54)
[2022-09-27] MEDS ORDERED: MAG HYDROX/AL HYDROX/SIMETH 30 ML UNIT-DOSE CUP PO PRN (02:54)
[2022-09-27] MEDS ORDERED: IBUPROFEN 600 MG TABLET (FP) PO PRN (02:54)
[2022-09-27] MEDS ORDERED: BENZOCAINE/MENTHOL (CHLORASEPTIC ) LOZENGE MM PRN (02:54)
[2022-09-27] MEDS ORDERED: cloNIDine HCL 0.1 MG TABLET PO PRN (02:54)
[2022-09-27] MEDS ORDERED: NICOTINE POLACRILEX 2 MG GUM BUC PRN (02:54)
[2022-09-27] MEDS ORDERED: METHOCARBAMOL 500 MG TABLET PO PRN (02:54)
[2022-09-27] MEDS ORDERED: POLYETHYLENE GLYCOL (HEALTHYLAX) 3350 17 GM PACKET PO PRN (02:54)
[2022-09-27] MEDS ORDERED: MAGNESIUM HYDROX 2400MG/30ML ORAL SUSPENSION 30 ML CUP PO PRN (02:54)
[2022-09-27] MEDS ORDERED: ACETAMINOPHEN 325 MG TABLET (FP) PO PRN ×2 (02:54)
[2022-09-27] MEDS ORDERED: methaDONE HCL 10 MG TABLET (FOR DETOX USE ONLY) PO ONE (04:15)
[2022-09-27 09:37] VITALS: PULSE 90
[2022-09-27] MEDS ORDERED: PRENATAL VITAMINS W/ FOLIC ACID TABLET (FP) PO SCH (10:00)
[2022-09-27] MEDS ORDERED: NICOTINE 14 MG/24 HOURS TOPICAL PATCH TD SCH (10:00)
[2022-09-27 13:15] VITALS: BP 134/84; TEMP 97.8
[2022-09-27] MEDS ORDERED: MELATONIN 5 MG TABLETS PO SCH (22:00)
[2022-09-27] MEDS ORDERED: THIAMINE HCL 100 MG TABLET (FP) PO SCH (22:00)
[2022-09-29] MEDS ORDERED: methaDONE HCL 10 MG TABLET (FOR DETOX USE ONLY) PO ONE (10:00)
[2022-10-01] MEDS ORDERED: methaDONE HCL 10 MG TABLET (FOR DETOX USE ONLY) PO ONE (10:00)
== END 2022-09-27 14:51 | disposition left against medical advice (07) | DRG 770 ==
LOC: YASAS 01:51 → Y3N 03:04 → Y6N 03:14
PROVIDERS: ADMIT Allergy & Immunology; ATTEND Family Medicine
PROC: HZ2ZZZZ Detoxification Services for Substance Abuse Treatment (ICD-10-PCS; principal; 2022-09-27)
DX: F11.23 Opioid dependence with withdrawal (principal); F14.20 Cocaine dependence, uncomplicated; F15.20 Other stimulant dependence, uncomplicated; F12.20 Cannabis dependence, uncomplicated; F17.210 Nicotine dependence, cigarettes, uncomplicated; F41.9 Anxiety disorder, unspecified; R56.9 Unspecified convulsions
CPT/HCPCS: 36415; 86780; 93005; 93010; C9803-CS; U0003; U0005